=== PATIENT | female | born 1990 | race Caucasian/White ===

== ENCOUNTER 2017-01-22 10:38 | Emergency (ER) | payer MEDICAID, OTHER ==
[~2017-01-22] VITALS: Ht 152.4 cm; Wt 61.4 kg
[~2017-01-22 10:38] MED LIST: NO MEDS
[2017-01-22] MEDS ORDERED: GUAIF10 PO (10:56)
[2017-01-22] MEDS ORDERED: [UNRECOGNIZED DRUG - CODE] PO (10:56)
[2017-01-22 11:25] VITALS: BP 102/59
[2017-01-22] MEDS ORDERED: IBUPROFEN 600 MG TABLET PO ONE (12:45)
== END 2017-01-22 13:21 | disposition home or self-care (01) ==
LOC: EMS 10:39
DX: H69.82 Other specified disorders of Eustachian tube, left ear (principal)
CPT/HCPCS: 99283

== ENCOUNTER 2018-01-27 16:03 | Emergency (ER) | payer OTHER ==
[~2018-01-27] VITALS: Ht 149.9 cm; Wt 62.0 kg
[~2018-01-27 16:03] MED LIST changes: +GUAIF10 PO; -NO MEDS; +[UNRECOGNIZED DRUG - CODE] PO
[2018-01-27 18:38] VITALS: BP 107/69
[2018-01-27] MEDS ORDERED: DEXAMETHASONE SOD PHOS 4 MG/ML 5 ML VIAL IM ONE (19:00)
[2018-01-27] MEDS ORDERED: CefTRIAXone SODIUM 1 GM/VIAL IM ONE (19:00)
[2018-01-27] MEDS ORDERED: ACETAMINOPHEN 500 MG TABLET PO ONE (19:00)
[2018-01-27] MEDS ORDERED: LIDOCAINE HCL/PF 1% 2 ML VIAL IM ONE (19:00)
== END 2018-01-27 19:24 | disposition home or self-care (01) ==
LOC: EMS 16:04
DX: J02.0 Streptococcal pharyngitis (principal)
CPT/HCPCS: 87430; 96372; 99284; J0696; J1100; J3490

== ENCOUNTER 2018-04-23 09:27 | Emergency (ER) | payer OTHER ==
[~2018-04-23] VITALS: Ht 149.9 cm; Wt 68.2 kg
[2018-04-23 11:15] LABS: APPEARANCE,URINE CLOUDY (CLEAR); BILIRUBIN,URINE NEGATIVE (NEGATIVE); GLUCOSE, URINE (UA) NEGATIVE (NEGATIVE); KETONES,URINE NEGATIVE (NEGATIVE); LEUKOCYTE ESTERASE ,URINE LARGE (NEGATIVE); NITRATE,URINE NEGATIVE (NEGATIVE); OCCULT BLOOD,URINE NEGATIVE (NEGATIVE); PH,URINE 6.5 (5.0-8.0); PROTEIN,URINE NEGATIVE (NEGATIVE); UROBILINOGEN,URINE 0.2 mg/dL (<=1.0)
[2018-04-23 11:26] LABS: BACTERIA,URINE Few /HPF (None Seen); RBC,URINE None Seen /HPF (0-2); SQUAMOUS EPITHELIAL CELL,UR Many /LPF (None Seen)
[2018-04-23] MEDS ORDERED: CefTRIAXone SODIUM 1 GM/VIAL IM ONE (11:45)
[2018-04-23] MEDS ORDERED: AZITHROMYCIN 250 MG TABLET PO ONE (11:45)
[2018-04-23] MEDS ORDERED: LIDOCAINE HCL/PF 1% 2 ML VIAL IM ONE (12:00)
[2018-04-23 13:02] VITALS: BP 122/71
== END 2018-04-23 13:07 | disposition home or self-care (01) ==
LOC: EMS 09:28
DX: N72 Inflammatory disease of cervix uteri (principal); N89.8 Other specified noninflammatory disorders of vagina
CPT/HCPCS: 81001; 84703; 87086; 87210; 87491; 87591; 96372; 99284; J0696; J3490

== ENCOUNTER 2021-12-20 16:46 | Emergency (ER) | payer OTHER ==
[2021-12-20] MEDS ORDERED: NAPROXEN 250 MG TABLET PO ONE (17:30)
== END 2021-12-20 17:55 | disposition left against medical advice (07) ==
LOC: EMS 17:38
DX: M25.561 Pain in right knee (principal)
CPT/HCPCS: 99282; Z7502